=== PATIENT | female | born 1975 | race Caucasian/White ===

== ENCOUNTER 2017-06-21 15:13 | Outpatient (RCR) | payer OTHER ==
[2017-06-19 11:30] VITALS: BP 110/69
[2017-06-19 11:32] LABS: PLATELET COUNT, AUTOMATED 177 K/uL (150-450)
[~2017-06-21] VITALS: Ht 165.1 cm; Wt 55.9 kg
[~2017-06-21 15:13] MED LIST: CEPH250C37 PO; DEXA6TAB5 PO; EXE25PT PO; FAMO20TA28 PO; KET10 PO; LOR1 PO; ONDA8TAB94 PO; PER PO; PROC10TA4 PO; SANCUSOPT TD; TAMO20TA24 PO; VENL37.594 PO
[2017-06-21 15:20] VITALS: BP 116/76
--- NOTE | 2017-06-21 19:04 | ONCOLOGY FOLLOW UP NOTE ---
EVENT DATE: June 21, 2017 DIAGNOSES 1. Recurrent left breast cancer. 2. Chest wall recurrence. 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 ONCOLOGY HISTORY The patient is a 41-year-old premenopausal woman who was diagnosed at the age of 37 years with left breast cancer. She was initially treated with left breast lumpectomy and sentinel lymph node biopsy done May 06, 2012. Pathology was positive for 1.4 cm ductal carcinoma, grade III/III, ER/ND positive, HER2 negative. [place] lymph nodes were negative for metastasis. The patient received adjuvant chemotherapy with TC regimen with Taxotere and cyclophosphamide between June 03, 2012 through August 05, 2012 followed by bilateral mastectomy with reconstruction. The patient was maintained on tamoxifen after that until she palpated a mass in the left chest wall, status post chest wall excisional biopsy of this mass done May 04, 2015, followed by surgical excision and re-excision for positive margins. She had her surgical excision on May 17, 2015 and pathology positive for 1.3 cm invasive ductal carcinoma recurrence. The tumor was grade III/III, ER/ND positive, HER2/pepe negative. The patient had superior and lateral margin involvement with carcinoma and she had re-excision after that. PET-CT scan done May 09, 2015 did not show any evidence of PET-active disease. 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 She received radiation therapy after chemotherapy. She had also bilateral salpingo-oophorectomy done December 14, 2015 and patient started treatment with Femara 2.5 mg daily December 16, 2015, but she developed severe depression immediately after starting the treatment and after a few days treatment was stopped. The patient started treatment with Aromasin 25 mg daily with better tolerance so far. HISTORY OF PRESENT ILLNESS Patient is here today for follow up of her recurrent left breast cancer on hormonal therapy with Aromasin. Patient is doing fine currently and she is totally asymptomatic. She denies any hot flashes or any problem with her Aromasin therapy. PAST MEDICAL HISTORY Left breast cancer. PAST SURGICAL HISTORY 1. In 1996, she had left grade 2 ORIF. 2. In 2002, she had left grade 2 bunionectomy. 3. On May 06, 2012, she had left lumpectomy and sentinel lymph node biopsy. 4. In August of 2012, patient had bilateral mastectomy and tissue de icer placement. Pathology was negative. 5. In February of 2013, patient had implant exchange. 6. In March of 2013, patient had fat grafting for reconstruction. SOCIAL HISTORY The patient is . She has two adult children. 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 No abuse of tobacco or drugs. FAMILY HISTORY Patient was adopted. MEDICATIONS 1. Effexor 37.5 mg capsule. 2. Pepcid 20 mg oral daily as needed for indigestion. 3. Aromasin 25 mg daily. ALLERGIES SULFA, which causes hives and rash. REVIEW OF SYSTEMS CONSTITUTIONAL: Patient has hot flashes. HEENT: Ears: No tinnitus or hearing problem. Nose: She has nasal discharge. Throat: No sore throat or mouth ulcers. Eyes: No diplopia or visual changes. RESPIRATORY: No shortness of breath. No cough, expectoration or hemoptysis. CARDIOVASCULAR: No chest pain, orthopnea, or paroxysmal nocturnal dyspnea (PND) . No edema. No palpitations. GASTROINTESTINAL: She has some abdominal pain from her recent laparoscopic surgery done two days ago. GENITOURINARY: No hematuria or dysuria. MUSCULOSKELETAL: No pain in the muscles, joints or bones. NEUROLOGICAL: No tingling or numbness in the hands or feet. No headaches or convulsions. HEMATOLOGIC/LYMPHATIC: She bruises easily. SKIN: No skin rash or lump. PSYCHIATRIC: No anxiety or depression. PHYSICAL EXAMINATION GENERAL: Looks stable. Well-developed, well-nourished, and in no acute distress. VITAL SIGNS: Blood pressure 116/76, pulse 72 per minute, respirations 16 per minute, temperature 96.8, pulse ox 96% on room air. HEENT: Head: Atraumatic. No sinus tenderness to palpation. Eyes: No icterus or conjunctivitis. Mouth and Throat: No oral thrush or mucositis. NECK: Supple. No cervical or supraclavicular lymphadenopathy. LUNGS: Clear to auscultation and percussion bilaterally. HEART: Regular rate and rhythm. No gallops, murmurs, clicks or rubs. ABDOMEN: Soft and lax. There are some bruises at sites of incisions for her laparoscopic surgery with some tenderness to palpation. EXTREMITIES: No cyanosis, clubbing or edema. LYMPHATICS: No peripheral lymphadenopathy. NEUROLOGICAL: Conscious, alert and oriented times three. No focal motor or sensory deficits. PSYCHIATRIC: Mood and affect appear normal. SKIN: No skin rash, bruise or purpuric eruption. DIAGNOSTIC DATA CBC showed white count 4000, hemoglobin 15.8, hematocrit 45.7, platelets 177, 000. MCV 98.6. Chem panel is totally normal except blood sugar 119 and AST 44. CA 27-29 is normal at 25.8. ASSESSMENT 1. Left breast invasive ductal carcinoma with chest wall recurrence. Patient initially treated with left breast lumpectomy and sentinel lymph node biopsy done May 06, 2012. Pathology was positive for 1.4 cm invasive ductal carcinoma grade 3/3, ER/ND positive, HER2/pepe negative. [place] lymph nodes were negative for metastasis. Patient received adjuvant chemotherapy with TC regimen with Taxotere and cyclophosphamide between June 03, 2012 through August 05, 2012 followed by bilateral mastectomy with reconstruction. Patient was maintained on tamoxifen after that until she palpated a mass in the left chest wall status post chest wall excisional biopsy of the mass April followed by surgical excision and reexcision for positive margins. She had surgical excision May 17, 2015, and the pathology was positive for 1.3 invasive ductal carcinoma recurrence. Tumor grade was 3/3, ER/ND positive, HER2 /pepe negative. Patient had superior and lateral margin involvement with carcinoma, and she had reexcision after that. She had a PET CT scan April, which did not show any evidence of PET avid disease. Patient received six cycles of chemotherapy with FEC 100 between June 23, 2015 through September, and she developed severe bone marrow suppression with her treatment, requiring growth factor supplement. She received radiation therapy after chemotherapy. She had bilateral salpingo-oophorectomy done December 14, 2015. She started treatment with Femara 2.5 mg daily December 16, 2015, but she developed severe depression immediately after starting the treatment after a few days, and treatment was stopped. She started treatment with Aromasin 25 mg daily with better tolerance, and she is really doing very well with that treatment currently. Her vitamin D was insufficient at 28, and the patient maintained on vitamin D supplement with normalization of her vitamin D to 52 after that. She is currently in remission. Her tumor marker with CA 27-29 is normal at 25.8. I am planning to continue the same treatment with Aromasin, and I will see her again in three months with CBC, chem panel and CA 27-29. 2. Vitamin D insufficiency. She is currently on vitamin D supplement 2000- 3000 units per day, and we will continue the same. PLAN 1. Continue Aromasin 25 mg daily. 2. Continue vitamin D 3000 units daily. 3. Patient to return in three months with CBC, Chem panel, CA 27-29. 4. Patient to contact us for any new concern or complaints. LOCOD
== END 2017-07-05 09:15 | disposition home or self-care (01) ==
LOC: ONC 15:13
PROVIDERS: ATTEND Internal Medicine Hematology
DX: Z85.3 Personal history of malignant neoplasm of breast (principal); E55.9 Vitamin D deficiency, unspecified; N95.1 Menopausal and female climacteric states; G89.18 Other acute postprocedural pain; Z92.3 Personal history of irradiation; Z79.899 Other long term (current) drug therapy; Z92.21 Personal history of antineoplastic chemotherapy
CPT/HCPCS: 36415; 82040; 82247; 82310; 82374; 82435; 82565; 82947; 84075; 84132; 84155; 84295; 84450; 84460; 84520; 85025; 86300; 99212

== ENCOUNTER 2017-10-04 15:00 | Outpatient (RCR) | payer OTHER ==
[2017-09-30 16:14] LABS: PLATELET COUNT, AUTOMATED 185 K/uL (150-450)
[2017-10-04 15:09] VITALS: BP 103/71
--- NOTE | 2017-10-07 04:23 | [facility] ONCOLOGY NOTE ---
EVENT DATE: October 04, 2017 DIAGNOSES 1. Recurrent left breast cancer. 2. Chest wall recurrence. 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 ONCOLOGY HISTORY The patient is a 42-year-old premenopausal woman who was diagnosed at the age of 37 years with left breast cancer. She was initially treated with left breast lumpectomy and sentinel lymph node biopsy done May 06, 2012. Pathology was positive for 1.4 cm ductal carcinoma, grade III/III, ER/IA positive, HER2 negative. [place] lymph nodes were negative for metastasis. The patient received adjuvant chemotherapy with TC regimen with Taxotere and cyclophosphamide between June 03, 2012 through August 05, 2012 followed by bilateral mastectomy with reconstruction. The patient was maintained on tamoxifen after that until she palpated a mass in the left chest wall, status post chest wall excisional biopsy of this mass done May 04, 2015, followed by surgical excision and re-excision for positive margins. She had her surgical excision on May 17, 2015 and pathology positive for 1.3 cm invasive ductal carcinoma recurrence. The tumor was grade III/III, ER/IA positive, HER2/pepe negative. The patient had superior and lateral margin involvement with carcinoma and she had re-excision after that. PET-CT scan done May 09, 2015 did not show any evidence of PET-active disease. 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 She received radiation therapy after chemotherapy. She had also bilateral salpingo-oophorectomy done December 14, 2015 and patient started treatment with Femara 2.5 mg daily December 16, 2015, but she developed severe depression immediately after starting the treatment and after a few days treatment was stopped. The patient started treatment with Aromasin 25 mg daily with better tolerance so far. HISTORY OF PRESENT ILLNESS Patient is here today for follow up of her recurrent left breast cancer on hormonal therapy with Aromasin. Patient is tolerating Aromasin very well currently without any complaint. 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 Other than that, she is really doing very well, and she does not have any complaints. PAST MEDICAL HISTORY Left breast cancer. PAST SURGICAL HISTORY 1. In 1996, she had left grade 2 ORIF. 2. In 2002, she had left grade 2 bunionectomy. 3. On May 06, 2012, she had left lumpectomy and sentinel lymph node biopsy. 4. In August of 2012, patient had bilateral mastectomy and tissue seasonal clerk placement. Pathology was negative. 5. In February of 2013, patient had implant exchange. 6. In March of 2013, patient had fat grafting for reconstruction. SOCIAL HISTORY The patient is . She has two adult children. 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 No abuse of tobacco or drugs. FAMILY HISTORY Patient was adopted. MEDICATIONS 1. Effexor 37.5 mg capsule. 2. Pepcid 20 mg oral daily as needed for indigestion. 3. Aromasin 25 mg daily. ALLERGIES SULFA, which causes hives and rash. REVIEW OF SYSTEMS CONSTITUTIONAL: No appetite or weight change. No fever, chills or sweating. No recent infection. HEENT: Ears: No tinnitus or hearing problem. Nose: No nasal discharge or epistaxis. Throat: No sore throat or mouth ulcers. Eyes: No diplopia or visual changes. RESPIRATORY: No shortness of breath. No cough, expectoration or hemoptysis. CARDIOVASCULAR: No chest pain, orthopnea, or paroxysmal nocturnal dyspnea (PND) . No edema. No palpitations. GASTROINTESTINAL: No nausea or vomiting. No diarrhea or constipation. No change in bowel movements. No heartburn or swallowing difficulties. No abdominal pain. No jaundice. No hematemesis, melena or rectal bleeding. GENITOURINARY: No hematuria or dysuria. MUSCULOSKELETAL: No pain in the muscles, joints or bones. NEUROLOGICAL: She has some numbness in her hands, especially on activity. HEMATOLOGIC/LYMPHATIC: No bleeding or easy bruising. No weakness or fatigued. No enlarged lymph nodes. SKIN: No skin rash or lumps. PSYCHIATRIC: No anxiety or depression. PHYSICAL EXAMINATION GENERAL: Looks stable. Well-developed, well-nourished, and in no acute distress. VITAL SIGNS: Blood pressure 103/71, pulse 71 per minute, respirations 16 per minute, temperature 96.6, pulse oximetry 94% on room air. HEENT: Head: Atraumatic. No sinus tenderness to palpation. Eyes: No icterus or conjunctivitis. Mouth and throat: No oral thrush or mucositis. NECK: Supple. No cervical or supraclavicular lymphadenopathy. LUNGS: Clear to auscultation and percussion bilaterally. HEART: Regular rate and rhythm. No gallops, murmurs, clicks or rubs. ABDOMEN: Soft and lax. No tenderness. No hepatosplenomegaly. No masses. EXTREMITIES: No cyanosis, clubbing or edema. LYMPHATICS: No peripheral lymphadenopathy. NEUROLOGICAL: Conscious, alert and oriented times three. No focal motor or sensory deficits. PSYCHIATRIC: Mood and affect appear normal. SKIN: No skin rash, bruise or purpuric eruption. DIAGNOSTIC DATA CBC showed white count 4.5, hemoglobin 15.5, hematocrit 44.7, platelets 185, 000. Chem panel totally normal except AST 45. CA 27-29 is 29, which is up from 25.6, considered normal. ASSESSMENT 1. Left breast invasive ductal carcinoma with chest wall recurrence. Patient initially treated with breast lumpectomy and sentinel lymph node biopsy May 06, 2012. Pathology was positive for 1.4 cm invasive ductal carcinoma grade 3/3, ER/IA positive, HER2/pepe negative. [place] lymph nodes were negative for metastasis. Patient received adjuvant chemotherapy with TC regimen with Taxotere and cyclophosphamide between June 03, 2012 through August 05, 2012 followed by bilateral mastectomy with reconstruction. Patient was maintained on tamoxifen after that until she palpated a mass in the left chest wall status post chest wall excisional biopsy of the mass April followed by surgical excision and reexcision for positive margins. She had surgical excision May 17, 2015, and the pathology was positive for 1.3 cm invasive ductal carcinoma. Tumor grade was 3/3, ER/IA positive, HER2/pepe negative. Patient had superior and lateral margin involvement with carcinoma, and she had reexcision after that. She had a PET CT scan May 09, 2015, which did not show any evidence of PET avid disease. Patient received six cycles of chemotherapy with FEC 100 regimen between June 23, 2015 through October 06, 2015, and she developed severe bone marrow suppression with her treatment, requiring growth factor supplement. She received radiation therapy after chemotherapy. She had bilateral salpingo-oophorectomy done December 14, 2015. She started treatment with Femara 2.5 mg daily December 16, 2015, but she developed severe depression immediately after starting the treatment after a few days, and treatment was stopped. She started treatment with Aromasin 25 mg daily with better tolerance. She is really doing very well with that treatment currently. Her vitamin D was insufficient at 28, and the patient maintained on vitamin D supplement with normalization of vitamin D to 52 after that. I am planning to continue Aromasin 25 mg daily. I will see her again in three months with CBC, Chem panel, CA 27-29 and CA 15-3. Her tumor maker with CA 27- 29 is currently 29, which is up from 25.6. This is considered normal and stable. Patient currently in complete remission. 2. Vitamin D insufficiency. She is currently on vitamin D supplement 2000- 3000 units per day, continue the same. PLAN 1. Continue Aromasin 25 mg daily. 2. Continue vitamin D 3000 units daily. 3. Patient to return in three months with CBC, Chem panel, CA 27-29. 4. Patient to contact us for any new concern or complaints. MTDD
== END 2017-12-26 ==
LOC: ONC 15:00
PROVIDERS: ATTEND Internal Medicine Hematology
DX: C50.912 Malignant neoplasm of unspecified site of left female breast (principal); Z17.1 Estrogen receptor negative status [ER-]; Z79.811 Long term (current) use of aromatase inhibitors; R20.0 Anesthesia of skin; Z92.21 Personal history of antineoplastic chemotherapy; E55.9 Vitamin D deficiency, unspecified
CPT/HCPCS: 36415; 82040; 82247; 82310; 82374; 82435; 82565; 82947; 84075; 84132; 84155; 84295; 84450; 84460; 84520; 85025; 86300; 99212

== ENCOUNTER 2018-04-10 13:53 | Outpatient (RCR) | payer OTHER ==
[2018-04-03 13:19] VITALS: BP 115/81
[2018-04-03 13:28] LABS: PLATELET COUNT, AUTOMATED 203 K/uL (150-450)
[2018-04-10 14:03] VITALS: BP 127/83
--- NOTE | 2018-04-10 20:19 | ONCOLOGY FOLLOW UP NOTE ---
EVENT DATE: April 10, 2018 DIAGNOSES 1. Recurrent left breast cancer. 2. Chest wall recurrence. 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 ONCOLOGY HISTORY The patient is a 42-year-old premenopausal woman who was diagnosed at the age of 37 years with left breast cancer. She was initially treated with left breast lumpectomy and sentinel lymph node biopsy done May 06, 2012. Pathology was positive for 1.4 cm ductal carcinoma, grade 2/3, ER/OH positive, HER2 negative. [place] lymph nodes were negative for metastasis. The patient received adjuvant chemotherapy with TC regimen with Taxotere and cyclophosphamide between June 03, 2012, through August 05, 2012, followed by bilateral mastectomy with reconstruction. The patient was maintained on tamoxifen after that until she palpated a mass in the left chest wall, status post chest wall excisional biopsy of this mass done May 04, 2015, followed by surgical excision and re-excision for positive margins. She had her surgical excision on May 17, 2015, and pathology was positive for 1.3 cm invasive ductal carcinoma recurrence. The tumor was grade 3/3, ER/OH positive, HER2/pepe negative. The patient had superior and lateral margin involvement with carcinoma, and she had re-excision after that. PET/CT scan done May 09, 2015, did not show any evidence of PET-active disease. She received six cycles of FEC 600 between June 23, 2015, through October 06, 2015, and she developed severe bone marrow depression with her treatment and required growth factor supplement. She received radiation therapy after chemotherapy. She had also bilateral salpingo- oophorectomy done December 14, 2015. Patient started treatment with Femara 2.5 mg daily December 16, 2015, but she developed severe depression immediately after starting the treatment, and after a few days, treatment was stopped. The patient started treatment with Aromasin 25 mg daily with better tolerance so far. HISTORY OF PRESENT ILLNESS Patient is here today for followup of her recurrent left breast cancer on hormonal therapy with Aromasin. She is doing fine currently except that for the last two months she has worsening pain in the lower back and pelvic area which is getting worse during the night, and the patient has a concern about that. Other than that, she is really doing very well. PAST MEDICAL HISTORY Left breast cancer. PAST SURGICAL HISTORY 1. In 1996, she had left grade 2 ORIF. 2. In 2002, she had left grade 2 bunionectomy. 3. On May 06, 2012, she had left lumpectomy and sentinel lymph node biopsy. 4. In August 2012, patient had bilateral mastectomy and tissue squaring shear operator placement. Pathology was negative. 5. In February 2013, patient had implant exchange. 6. In March 2013, patient had fat grafting for reconstruction. SOCIAL HISTORY The patient is . She has two adult children. 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 No abuse of tobacco or drugs. FAMILY HISTORY Patient was adopted. MEDICATIONS 1. Effexor 37.5 mg capsule. 2. Pepcid 20 mg oral daily as needed for indigestion. 3. Aromasin 25 mg daily. ALLERGIES SULFA which causes hives and rash. REVIEW OF SYSTEMS CONSTITUTIONAL: No appetite or weight change. No fever, chills, or sweating. No recent infection. HEENT: Ears: No tinnitus or hearing problem. Nose: No nasal discharge or epistaxis. Throat: No sore throat or mouth ulcers. Eyes: No diplopia or visual changes. RESPIRATORY: No shortness of breath. No cough, expectoration, or hemoptysis. CARDIOVASCULAR: No chest pain, orthopnea, or paroxysmal nocturnal dyspnea (PND). No edema. No palpitations. GASTROINTESTINAL: No nausea or vomiting. No diarrhea or constipation. No change in bowel movements. No heartburn or swallowing difficulties. No abdominal pain. No jaundice. No hematemesis, melena, or rectal bleeding. GENITOURINARY: No hematuria or dysuria. MUSCULOSKELETAL: She has lower back pain and pelvic pain, got worse during the last two months. NEUROLOGICAL: She has some numbness in her hands, especially on activity. HEMATOLOGIC/LYMPHATIC: No bleeding or easy bruising. No weakness or fatigue. No enlarged lymph nodes. SKIN: No skin rash or lumps. PSYCHIATRIC: No anxiety or depression. PHYSICAL EXAMINATION GENERAL: Looks stable. Well developed, well nourished, and in no acute distress. VITAL SIGNS: Blood pressure 127/83, pulse 56 per minute, respirations 16 per minute, temperature 97, pulse ox 96% on room air. HEENT: Head: Atraumatic. No sinus tenderness to palpation. Eyes: No icterus or conjunctivitis. Mouth and throat: No oral thrush or mucositis. NECK: Supple. No cervical or supraclavicular lymphadenopathy. LUNGS: Clear to auscultation and percussion bilaterally. HEART: Regular rate and rhythm. No gallops, murmurs, clicks, or rubs. ABDOMEN: Soft and lax. No tenderness. No hepatosplenomegaly. No masses. EXTREMITIES: No cyanosis, clubbing, or edema. LYMPHATICS: No peripheral lymphadenopathy. NEUROLOGICAL: Conscious, alert, and oriented times three. No focal motor or sensory deficits. PSYCHIATRIC: Mood and affect appear normal. SKIN: No skin rash, bruise, or purpuric eruption. DIAGNOSTIC DATA CBC showed white count 4.4, hemoglobin 15.2, hematocrit 45.3, platelets 203,000. Chem panel is totally normal. CA27.29 is 26.7, which is actually going down from 29 with her last visit. ASSESSMENT 1. Left breast invasive ductal carcinoma with chest wall recurrence. Patient initially treated with breast lumpectomy and sentinel lymph node biopsy May 06, 2012, and pathology was positive for 1.4 cm invasive ductal carcinoma grade 3/3, ER/OH positive, HER2/pepe negative. [place] lymph nodes were negative for metastasis. Patient received adjuvant chemotherapy with TC regimen with Taxotere and cyclophosphamide between June 03, 2012, through August 05, 2012, followed by bilateral mastectomy with reconstruction. Patient was maintained on tamoxifen after that until she palpated a mass in the left chest wall, status post chest wall excisional biopsy of the mass May 04, 2015, followed by surgical excision, and reexcision for positive margins. She had surgical excision May 17, 2015, and the pathology was positive for a 1.3 cm invasive ductal carcinoma. Tumor grade was 3/3, ER/OH positive, HER2/pepe negative. Patient had superior and lateral margin involvement with carcinoma, and she had reexcision after that. She had a PET/CT scan May 09, 2015, which did not show any evidence of PET-avid disease. Patient received six cycles of chemotherapy with FEC 100 regimen between June 23, 2015, through October 06, 2015, and she developed severe bone marrow suppression with her treatment, requiring growth factor supplement. She received radiation therapy after chemotherapy. She had bilateral salpingo-oophorectomy done December 14, 2015. She started treatment with Femara 2.5 mg daily December 16, 2015, but she developed severe depression immediately after starting the treatment by a few days, and the treatment was stopped. She started treatment with Aromasin 25 mg daily with better tolerance. She is really doing very well with the treatment currently. Her vitamin D level was insufficient at 28, and the patient was maintained on vitamin D supplement with normalization of her vitamin D to 52 after that. She is having worsening lower back pain and pelvic pain lately for the last two months, and I plan to get an MRI of the lumbar spine and pelvis for further evaluation. If the patient has metastasis, then we are going to deal with that, but if she does not, then I will see her in three months with CBC, chemistry panel, CA27.29, and CA15-3. Her tumor marker currently actually dropped from 29 to 26.7. I explained that to the patient. Patient agreeable with the plan of management. 2. Vitamin D insufficiency, currently on vitamin D supplement 2349-9129 units daily. Will continue the same. PLAN 1. MRI of the lumbar spine and pelvis with and without contrast. 2. Patient to return after the above for further evaluation and management. 3. If the patient does not have metastasis into bone, I will see her in three months with CBC, chem panel, CA27.29, and CA15-3. 4. Patient to contact us for any new concerns or complaints. LOCOD
[2018-04-24] MEDS ORDERED: GADOBENATE 529MG/1ML 15ML VIAL IVP ONE (08:04)
[2018-04-24] MEDS ORDERED: NS(*) 0.9% 50 ML BAG 50 ML ONE (08:04)
--- NOTE | 2018-04-24 10:53 | RADIOLOGY IMAGING REPORT ---
FACILITY: [facility] PATIENT NAME: Astrid Acosta : 1975 MR: [id number] V: [id number] EXAM DATE: ORDERING PHYSICIAN: TOM VALLEJO TECHNOLOGIST: Location: [facility] Patient: Astrid Acosta : 1975 Visit/Account:[id number] Date of Sevice: 04/24/2018 L SPINE W W/O CONTRAST Provided history: Breast cancer. Low back pain. Possible metastatic disease. Additional pertinent history: none TECHNIQUE: Multiplanar multisequence lumbar MRI was performed without and with intravenous contras t Contrast dose: 12ml IV Multihance . COMPARISON STUDIES: No relevant priors FINDINGS: Segment numbering: Lumbosacral junction at L5-S1. No transitional segment. Extra-spinal soft tissues: Negative Alignment: Normal Osseous signal pattern: There is moderate Modic 1 signal changes about the L5-S1 discs. This probabl y due to a benign Schmorl's node of inferior L5 but also from chronic degeneration. There are no fin dings concerning for metastatic disease. Distal thoracic cord / conus / cauda equina: negative Disc Spaces: Lower T spine: negative L1-L2: Disk height and signal pattern normal. No evidence of disk herniation or central stenosis No significant foraminal stenosis. L2-L3: Disk height and signal pattern normal. No evidence of disk herniation or central stenosi s. No significant foraminal stenosis. L3-L4: Disk height and signal pattern normal. No evidence of disk herniation or central stenos is. No significant foraminal stenosis. L4-L5: There is a minor concentric slightly more left lateralizing bulge of the disc. In conjunction with mild hypertrophy of facets, results in only mild narrowing of the upper left lateral recess bes t seen image 12 of series 7. The transiting left L5 nerve is not deformed. There is no stenotic foraminal stenosis.. L5-S1: The disk reveals severe narrowing and degeneration. Superimposed upon a moderate concen tric bulge the disc is a central and right central disc protrusion that touches the medial surface of the transiting nerve particularly on the right side without compromise of the lateral recesses. Matt tral canal size is normal. Lateralization of end-plate spurs and bilateral facet hypertrophy results in moderate left and only m ild narrowing of the right foramen. IMPRESSION: 1. Central and right central disc protrusion L5-S1 may affect the transiting nerves, right greater t rothman left but does not compromise the lateral recesses. 2. Mild narrowing of the upper left L5 lateral recess, probably not significant though this could af fect the transiting left L5 nerve intermittently. 3. No severe central stenosis and no high-grade foraminal stenosis. Moderate narrowing noted at lef t L5-S1. 4. Moderate Modic 1 changes surround the L5-S1 disc, degenerative in origin. No evidence of osseous metastatic disease on this exam. Report Dictated By: Mario Jarvis MD at 04/24/2018 10:37 AM Report E-Signed By: Mario Jarvis MD at 04/24/2018 10:49 AM WSN:[id number]
--- NOTE | 2018-04-24 12:29 | RADIOLOGY IMAGING REPORT ---
FACILITY: [facility] - [place] PATIENT NAME: Astrid Acosta : 1975 MR: [id number] V: [id number] EXAM DATE: ORDERING PHYSICIAN: TOM VALLEJO TECHNOLOGIST: Location: [facility] Patient: Astrid Acosta : 1975 Visit/Account:[id number] Date of Sevice: 04/24/2018 PELVIS W W/O CONTRAST COMPARISON: None. HISTORY: History of breast cancer with low back pain, possible metastases to bone. TECHNIQUE: Pre and postcontrast multiplanar MRI of the pelvis utilizing T1 weighted and fluid sensiti ve sequences. CONTRAST: 12 mL MultiHance intravenously. FINDINGS: The femoral heads are well formed and seated within well formed acetabula. There is no femoral avascu lar necrosis, fracture or significant osteoarthritis. There is degenerative disc disease including enhancing endplate associated degenerative signal change s at L5-S1, better characterized on the director industrial lumbar spine MRI which is reported separately. Ple ase see that report for details. Sacroiliac joints and pubic symphysis are unremarkable. There is n o evidence of sacroiliitis. No marrow replacing lesions to suggest bone metastasis. Normal alignment. No fractures. There is no hip effusion, iliopsoas or trochanteric bursitis. There is no muscle atrophy or edema. The visualized tendinous origins and tendinous insertions of the gluteal and iliopsoas muscles, as we ll as the origins of the hamstrings, quadriceps and adductor muscle groups are intact. No intrapelvic visceral abnormalities are seen. IMPRESSION: 1. No evidence of bone metastasis. 2. L5-S1 degenerative disc disease as described on the director industrial lumbar spine MRI. Report Dictated By: Mateusz Esquivel at 04/24/2018 12:20 PM Report E-Signed By: Mateusz Esquivel at 04/24/2018 12:26 PM WSN:[id number]
== END 2018-05-14 13:29 | disposition home or self-care (01) ==
LOC: ONC 13:53
PROVIDERS: ATTEND Internal Medicine Hematology
DX: C50.912 Malignant neoplasm of unspecified site of left female breast (principal); Z17.0 Estrogen receptor positive status [ER+]; Z79.811 Long term (current) use of aromatase inhibitors; Z92.21 Personal history of antineoplastic chemotherapy; Z92.3 Personal history of irradiation; Z90.722 Acquired absence of ovaries, bilateral; E55.9 Vitamin D deficiency, unspecified; M51.27 Other intervertebral disc displacement, lumbosacral region
CPT/HCPCS: 36415; 72158; 72197; 85025; 86300; 99212; A9577; J7050; 82040; 82247; 82310; 82374; 82435; 82565; 82947; 84075; 84132; 84155; 84295; 84450; 84460; 84520

== ENCOUNTER → 2018-10-09 | Outpatient (CLI) | payer OTHER ==
[~2018-10-09] MED LIST changes: +GADOBENATE 529MG/1ML 15ML VIAL IVP ONE; +NS(*) 0.9% 50 ML BAG 50 ML ONE
[2018-10-09 14:26] LABS: PLATELET COUNT, AUTOMATED 198 K/uL (150-450)
[2018-10-09 14:46] LABS: LDL CHOLESTEROL 55 mg/dl
--- NOTE | 2018-10-10 11:27 | RADIOLOGY IMAGING REPORT ---
FACILITY: [facility] - [place] PATIENT NAME: MILLIE WALDRON : [id number] MR: [id number] V: [id number] EXAM DATE: [id number] ORDERING PHYSICIAN: WES PALMA TECHNOLOGIST: Buffy Monreal PROCEDURE:BREAST BILATERAL W/O AND/OR WITH CONTRAST COMPARISON:None. INDICATIONS:hx of Right breast CA, left chest wall enlargement and pain TECHNIQUE: All imaging was performed prone in a dedicated breast coil. Axial & coronal T1 weighted images, axial T2, STIR, STAIR & gradient echo imaging was performed of both breasts. TRIM axial & sagittal images were obtained of both breasts. Axial T1 weighted dynamically enhanced imaging was performed of both breasts using 5 dynamic sequences. The dynamic series was timed for a 90 second peak. Subtraction imaging was performed. 11mm Multihance was utilized for the post contrast portion of the examination. Post processing was performed using a Zerply workstation. FINDINGS: The patient is status post bilateral mastectomies with implant reconstruction. No fibroglandular tissue is identified in either breast. The background of parenchymal enhancement was minimal. No abnormal areas of masslike or nonmasslike enhancement were identified in either breast. No abnormal enhancement identified along the chest wall. There is a tiny 7 x 4mm intramammary lymph node identified on the Right that is appreciated on the coronal T1 weighted images, image #5.There is no abnormal morphology. There are bilateral retropectoral silicon breast implants in place. There is no evidence of implant rupture. No abnormality of the visualized bones is seen. Visualized portion of the liver is unremarkable. DIAGNOSTIC CATEGORY 2--BENIGN FINDING. RECOMMENDATIONS: ROUTINE MAMMOGRAM AND CLINICAL EVALUATION. IMPRESSION: BIRADS 2: Benign finding. No abnormal areas of contrast enhancement identified within the chest. Patient's bilateral retropectoral breast implants appear intact. PLEASE NOTE:A NORMAL MRI DOES NOT EXCLUDE THE POSSIBILITY OF BREAST CANCER. A CLINICALLY SUSPICIOUS PALPABLE LUMP SHOULD BE BIOPSIED. CORRELATION WITH CLINICAL EXAM AND OTHER IMAGING STUDIES IS RECOMMENDED. Dictated by: Trinity Kevin M.D. on 10/10/2018 at 9:47 Transcribed by: HOMAR on 10/10/2018 at 11:06 Approved by: Trinity Kevin M.D. on 10/10/2018 at 11:26 [facility]
== END ==
LOC: MRI 07:18
PROVIDERS: ATTEND Nurse Practitioner Family
DX: N64.9 Disorder of breast, unspecified (principal); Z98.82 Breast implant status; Z90.13 Acquired absence of bilateral breasts and nipples; Z13.29 Encounter for screening for other suspected endocrine disorder; Z85.3 Personal history of malignant neoplasm of breast
CPT/HCPCS: 36415; 77049; 84443; 85025; A9577; J7050; 82040; 82247; 82310; 82374; 82435; 82465; 82565; 82947; 83718; 84075; 84132; 84155; 84295; 84450; 84460; 84478; 84520; 86300

== ENCOUNTER 2018-10-22 08:06 | Outpatient (RCR) | payer OTHER ==
[~2018-10-22 08:06] MED LIST changes: -GADOBENATE 529MG/1ML 15ML VIAL IVP ONE; -NS(*) 0.9% 50 ML BAG 50 ML ONE
== END 2018-11-17 13:22 | disposition home or self-care (01) ==
LOC: ONC 08:06
PROVIDERS: ATTEND Internal Medicine Hematology
DX: C50.919 Malignant neoplasm of unspecified site of unspecified female breast (principal); Z17.1 Estrogen receptor negative status [ER-]